=== PATIENT | male | born 2000 | race Caucasian/White ===

== ENCOUNTER 2022-12-26 22:19 | Emergency (ER) | payer BC, OTHER ==
[2022-12-26] MEDS ORDERED: ERYTHROMYCIN 0.5% OPHTHALMIC OINTMENT 3.5 GM TUBE OU ONE (22:26)
[2022-12-26 22:39] VITALS: BP 125/65; PULSE 75; RESP 18; TEMP 99.2; BMI 30.1
[2022-12-26] MEDS ORDERED: TETRACAINE 0.5% HCL 0.6ML DROPPER.BOTTLE OU ONE (23:02)
[2022-12-26] MEDS ORDERED: FLUORESCEIN NA 1 EA STRIP OU ONE (23:03)
[2022-12-26] MEDS ORDERED: TETRACAINE 0.5% OPHTH SOLN 2 ML BOTTLE ONE (23:06)
[2022-12-26] MEDS ORDERED: FLUORESCEIN NA 1 EA STRIP ONE (23:06)
[2022-12-26] MEDS ORDERED: ERYTHROMYCIN 0.5% OPHTHALMIC OINTMENT 3.5 GM TUBE ONE (23:26)
== END 2022-12-26 23:42 | disposition home or self-care (01) ==
LOC: FER 22:19
DX: H10.33 Unspecified acute conjunctivitis, bilateral (principal); H57.89 Other specified disorders of eye and adnexa
CPT/HCPCS: 99283-25